=== PATIENT | male | born 1935 | race Caucasian/White ===

== ENCOUNTER 2017-02-24 15:18 | Inpatient (IN) | payer OTHER, BC ==
--- NOTE | 2017-02-24 15:33 | EDPHY ---
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 The patient is visiting from [place], he arrived 6 days ago. The patient state he has had an ongoing productive cough with yellow sputum for the past month. Since arriving here his cough became dry. He has associated shortness of breath and states "it feels like my lungs are going to collapse". His shortness of breath is worse with exertion. His pulse oximeter has ranged in the low 90s and upper 80s. He tried sleeping with 3/4 L of O2 which seemed to slightly help. He feels nauseous but states this has been ongoing. The patient has a Gunderson catheter in place, this morning he had some hematuria, no associated dysuria or urgency. He denies fever, chills, chest pain, palpitations, vomiting, diarrhea, headache, or lightheadedness. The patient receives Lupron every 12 weeks for prostate cancer. REVIEW OF SYSTEMS: Aside from elements discussed in the HPI, a comprehensive 10-point review of systems was reviewed and is negative. PAST MEDICAL HISTORY: Prostate cancer with metastases, Hypertension SOCIAL HISTORY: From [place], here to visit his daughter. VITAL SIGNS: Reviewed by me GENERAL: Well-developed, well-nourished, resting comfortably in no respiratory distress. HEENT: Atraumatic. Eyes: No icterus, no injection. Mouth: moist mucous membranes. No erythema or lesions. Neck: supple with no adenopathy. LUNGS: Absent breath sounds at the right base 1[address] Breath sounds are clear on the left. CARDIAC: Regular rate and rhythm, systolic murmur. ABDOMEN: Right upper quadrant tenderness and fullness. No guarding or rebound. BACK: No CVA tenderness. EXTREMITIES: No trauma. No edema. Range of motion is normal throughout. NEURO: Alert and oriented, grossly nonfocal. SKIN: Warm and dry, no rash. PSYCHIATRIC: Normal mentation, no agitation. Portions of this note were transcribed by a biomedical electronics technician. I personally performed a history, physical exam, medical decision making, and confirmed accuracy of information the transcribed note. ED Course: Patient presents with dyspnea that started once the patient arrived in NH. He is here from [place] visiting his daughter. His home pulse oximeter has ranged lower 90s to upper 80s. Patient is 92% on room air here. He has his blood work from mid January. Plan to repeat blood work and check chest x-ray. Chest x-ray shows large right pleural effusion. I discussed findings and reviewed the films with the patient and his daughter. They agree with plan for admission. 12-LEAD EKG: Please see the full report in [facility]. My interpretation: Nonspecific ST flattening anteriorly. 1640: I spoke to the hospitalist, Dr. Arboleda, who agrees to admit the patient. CT Angio chest ordered to further evaluate patient's pleural effusion as well as to evaluate for pulmonary embolism.. I discussed CT imaging results with the radiologist, CT is negative for PE. Pleural effusion is present on the CT scan. MDM: Differential diagnosis for the patient's shortness of breath was considered including but not limited to pulmonary infectious processes, metastatic disease , pneumothorax, pleural effusion, pulmonary emboli, pulmonary edema, congestive heart failure, and cardiac causes. - Data Points Imaging Results: Imaging Impressions Chest X-Ray 02/24/17 15:48 Impression: 1. Large right pleural effusion. 2. Consider CT chest imaging. Chest/Thorax CTA 02/24/17 16:37 Impression: 1. No evidence of thrombopulmonary embolic disease. 2. Large right pleural effusion. Atelectasis right middle lobe and right lower lobe. 3. Hypodense lesions throughout the liver suggesting metastatic disease as given by history. Subcentimeter pulmonary nodules which is nonspecific but could represent metastatic disease. Results called and discussed with Mary Darby MD at 02/24/2017 17:15. Imaging: Discussed imaging studies w/ duck operator Radiologist, I viewed and interpreted images myself Laboratory Results: Laboratory Results 02/24/17 16:07 02/24/17 16:07 02/24/17 02/24/17 02/24/17 16:07 16:07 16:07 WBC 7.77 10^3/uL 10^3/uL (3.80-9.50) RBC 3.82 10^6/uL L 10^6/uL (4.40-6.38) Hgb 11.1 g/dL L g/dL (13.7-17.5) Hct 33.6 % L % (40.0-51.0) MCV 88.0 fL fL (81.5-99.8) MCH 29.1 pg pg (27.9-34.1) MCHC 33.0 g/dL g/dL (32.4-36.7) RDW 13.4 % % (11.5-15.2) Plt Count 259 10^3/uL 10^3/uL (150-400) MPV 8.8 fL fL (8.7-11.7) Neut % (Auto) 74.2 % % (39.3-74.2) Lymph % (Auto) 13.9 % L % (15.0-45.0) [place] % (Auto) 9.8 % % (4.5-13.0) Eos % (Auto) 1.0 % % (0.6-7.6) Baso % (Auto) 0.5 % % (0.3-1.7) Nucleat RBC Rel Count 0.0 % % (0.0-0.2) Absolute Neuts (auto) 5.76 10^3/uL 10^3/uL (1.70-6.50) Absolute Lymphs (auto) 1.08 10^3/uL 10^3/uL (1.00-3.00) Absolute Monos (auto) 0.76 10^3/uL 10^3/uL (0.30-0.80) Absolute Eos (auto) 0.08 10^3/uL 10^3/uL (0.03-0.40) Absolute Basos (auto) 0.04 10^3/uL 10^3/uL (0.02-0.10) Absolute Nucleated RBC 0.00 10^3/uL 10^3/uL (0-0.01) Immature Gran % 0.6 % % (0.0-1.1) Immature Gran # 0.05 10^3/uL 10^3/uL (0.00-0.10) D-Dimer 3.04 ug/mLFEU H ug/mLFEU (0.00-0.50) Sodium 134 mEq/L mEq/L (134-144) Potassium 3.6 mEq/L mEq/L (3.5-5.2) Chloride 99 mEq/L mEq/L (97-110) Carbon Dioxide 27 mEq/l mEq/l (22-31) Anion Gap 8 mEq/L mEq/L (8-16) BUN 18 mg/dL mg/dL (7-23) Creatinine 0.8 mg/dL mg/dL (0.7-1.3) Estimated GFR > 60 Glucose 102 mg/dL H mg/dL (70-100) Calcium 8.8 mg/dL mg/dL (8.5-10.4) Total Bilirubin 0.6 mg/dL mg/dL (0.1-1.4) Conjugated Bilirubin 0.3 mg/dL mg/dL (0.0-0.5) Unconjugated Bilirubin 0.3 mg/dL mg/dL (0.0-1.1) AST 125 IU/L H IU/L (17-59) ALT 47 IU/L IU/L (21-72) Alkaline Phosphatase 107 IU/L IU/L (38-126) Troponin I < 0.012 ng/mL ng/mL (0-0.034) Total Protein 6.5 g/dL g/dL (6.3-8.2) Albumin 3.6 g/dL g/dL (3.5-5.0) General Time Seen by Provider: 02/24/17 15:32 Initial Vital Signs: Initial Vital Signs Temperature (C) 36.6 C 02/24/17 15:19 Heart Rate 77 02/24/17 15:19 Respiratory Rate 18 02/24/17 15:19 Blood Pressure 168/74 H 02/24/17 15:19 O2 Sat (%) 92 02/24/17 15:19 O2 Delivery Mode Nasal Cannula O2 (L/minute) 2 Allergies/Adverse Reactions: Sulfa (Sulfonamide Antibiotics) Allergy (Verified 04/07/15 13:01) Home Medications: Medication Instructions Recorded Herbal Supplements 1 ea PO AD 04/07/15 Micardis Hct 80-12.5 mg Tablet 1 tab PO DAILY 04/07/15 Nisoldipine [Sular] 8.5 mg PO HS 04/07/15 Tamsulosin HCl [Flomax 0.4 MG (RX)] 0.4 mg PO BID 04/07/15 Cholecalciferol Vit D3 [Vitamin D3 1,000 units PO DAILY 02/24/17 (*)] Leuprolide Acetate [Lupron Depot] 22.5 mg IM [id number] 02/24/17 Multivitamins [Multivitamin (*)] 1 each PO DAILY 02/24/17 Departure - Departure Disposition: [facility] Acute Clinical Impression: Pleural effusion, Shortness of breath, Prostate cancer Condition: Fair Report Scribed for: Mary Darby Report Scribed by: Kay Blunt Date of Report: 02/24/17 Time of Report: 15:41
[2017-02-24 16:18] LABS: % IMMATURE GRANULYOCYTES 0.6 % (0.0-1.1); ABSOLUTE IMMATURE GRANULOCYTES 0.05 10^3/uL (0.00-0.10); ADD DIFF? NO; ADD MORPH? NO; ADD SCAN? NO; ATYPICAL LYMPHOCYTE FLAG 0 (0-99); FRAGMENT RBC FLAG 0 (0-99); HEMATOCRIT 33.6 % (40.0-51.0); HEMOGLOBIN 11.1 g/dL (13.7-17.5); LEFT SHIFT FLG 0 (0-99); LIPEMIA HEMOLYSIS FLAG 80 (0-99); MEAN CELL HEMOGLOBIN 29.1 pg (27.9-34.1); MEAN PLATELET VOLUME 8.8 fL (8.7-11.7); PLATELET CLUMPS FLAG 0 (0-99); PLATELET COUNT 259 10^3/uL (150-400); RED BLOOD CELL COUNT 3.82 10^6/uL (4.40-6.38); RED CELL DISTRIBUTION WIDTH 13.4 % (11.5-15.2)
[2017-02-24 16:33] LABS: ALANINE AMINOTRANSFERASE 47 IU/L (21-72); ALBUMIN 3.6 g/dL (3.5-5.0); ALKALINE PHOSPHATASE 107 IU/L (38-126); ANION GAP 8 mEq/L (8-16); ASPARTATE AMINOTRANSFERASE 125 IU/L (17-59); BILIRUBIN,TOTAL 0.6 mg/dL (0.1-1.4); BILIRUBIN-CONJUGATED 0.3 mg/dL (0.0-0.5); BILIRUBIN-UNCONJUGATED 0.3 mg/dL (0.0-1.1); CALCIUM 8.8 mg/dL (8.5-10.4); CARBON DIOXIDE 27 mEq/l (22-31); CHLORIDE 99 mEq/L (97-110); CREATININE 0.8 mg/dL (0.7-1.3); GLOMERULAR FILTRATION RATE > 60; GLUCOSE 102 mg/dL (70-100); POTASSIUM 3.6 mEq/L (3.5-5.2); SODIUM 134 mEq/L (134-144); TOTAL PROTEIN 6.5 g/dL (6.3-8.2)
[2017-02-24] MEDS ORDERED: IOPAMIDOL (ISOVUE 370) 100 ML BTL IV ONE (16:40)
[2017-02-24 16:44] LABS: TROPONIN I < 0.012 ng/mL (0-0.034)
[2017-02-24 18:33] LABS: INR 1.11 (0.83-1.16); PROTIME(PATIENT) 14.2 SEC (12.0-15.0)
[2017-02-24 18:34] LABS: APTT 32.4 SEC (23.0-38.0)
[2017-02-24 18:35] LABS: LACTATE DEHYDROGENASE 1640 IU/L (313-618)
--- NOTE | 2017-02-24 19:03 | GHP ---
[f rep st] HISTORY AND PHYSICAL DATE OF ADMISSION: 02/24/2017 CHIEF COMPLAINT: Shortness of breath and chest discomfort. HISTORY OF PRESENT ILLNESS: This is an 82-year-old male with history of stage IV prostate cancer, o n Reinaldo, with metastases to liver and lungs. He is visiting [place] from [place]. He has had wor sening shortness of breath for the past month. He was seen by his primary care provider a month ago , where he was diagnosed with bronchitis. Over the past few days, his shortness of breath has worse tonie to the point where he thought he should come in to the emergency department for further evaluati on. He reports intermittent cough as well as a right-sided chest discomfort that feels l stefani his "chest is collapsing." He denies any fevers or chills. He denies any chest pain. Denies a ny weight loss. PAST MEDICAL HISTORY: 1. Stage IV prostate cancer with metastases to liver and lungs. 2. Hypertension. PAST SURGICAL HISTORY: Carpal tunnel release, hernia repair, cataract surgery, QUETA surgery. HOME MEDICATIONS: Reviewed. Refer to [facility] for details. ALLERGIES: Sulfa. SOCIAL HISTORY: He lives with his independently in [place]. He denies any alcohol, tobacco, or illicit drug use. FAMILY HISTORY: Significant for prostate cancer in his father who ultimately of cancer in his liver. REVIEW OF SYSTEMS: Comprehensive 10-point review of systems was done and is negative except for as mentioned in the HPI. PHYSICAL EXAMINATION: VITAL SIGNS: Blood pressure 147/71, pulse 66, respiratory rate 16, O2 sat 96 % on 2 L, temperature afebrile. GENERAL: No acute distress. HEAD: Normocephalic, atraumatic. EY ES: PERRLA. Sclerae anicteric. MOUTH: Moist mucous membranes. NECK: Supple. No lymphadenopath y. CARDIOVASCULAR: S1 and S2 with a systolic murmur, grade 4/6, which does not radiate to the charles tids. There is trace lower extremity edema. There is no JVD. PULMONARY: Lungs are clear on the l eft with absent breath sounds in the right base. There is dullness to percussion in the right base as well with some egophony. ABDOMEN: Soft, nontender, and nondistended. No guarding or rebound te nderness. Normoactive bowel sounds. EXTREMITIES: No clubbing or cyanosis. NEUROLOGIC: Cranial n erves 2 through 12 are grossly intact. No focal motor or sensory deficits. SKIN: Clear no rashes. DIAGNOSTICS: WBC is 7.7, hemoglobin 11.1, hematocrit 33.6, platelets 259. Sodium 134, potassium 3. 6, BUN 18, creatinine 0.8, glucose 102. AST 125, ALT 47. Troponin less than 0.012. Chest x-ray which I visualized and personally interpreted shows a large right lower lobe consolidati on. His D-dimer was elevated, and subsequently a CT angio of the chest was done that was negative for PE , but also demonstrated a large right pleural effusion with atelectasis of the right middle and righ t lower lobes. ASSESSMENT: This is an 82-year-old male visiting from [place] with known stage IV prostate cancer with metastases to his liver and lung presenting with chest discomfort in the setting of acute respi ratory failure due to a large right-sided pleural effusion. Differential diagnosis includes cardiac in etiology versus malignant pleural effusion versus other. PLAN: Patient will be placed in observation. I have ordered coags as well as ultrasound-guided tho racentesis for both diagnostic and therapeutic purposes. Fluid will be sent for cytology, as well a s the other standard laboratory studies to further evaluate the effusion. Also ordered an echocardi ogram to evaluate his murmur. /[id number]/MODL
[2017-02-24] MEDS ORDERED: NISOLDIPINE 8.5 MG PO SCH ×2 (21:00)
[2017-02-24] MEDS: TAMSULOSIN HCL 0.4 MG CAP PO SCH (21:08)
[2017-02-24] MEDS: NISOLDIPINE 8.5 MG PO SCH (21:08)
[2017-02-25 05:20] LABS: LACTATE DEHYDROGENASE 1468 IU/L (313-618)
--- NOTE | 2017-02-25 06:08 | CPEKG ---
Heart Rate: 72 RR Interval: 833 P-R Interval: 200 QRSD Interval: 78 QT Interval: 388 QTC Interval: 425 P Sabin: 64 QRS Sabin: 10 T Wave Sabin: 67 EKG Severity - ABNORMAL ECG - EKG Impression: SINUS RHYTHM EKG Impression: LEFT VENTRICULAR HYPERTROPHY Electronically Signed By: Jayjay Bucio 26-Feb-2017 15:49:46
[2017-02-25] MEDS ORDERED: TELMISARTAN 40 MG TAB PO SCH (08:00)
[2017-02-25] MEDS ORDERED: HYDROCHLOROTHIAZIDE 25 MG TAB PO SCH (08:00)
[2017-02-25] MEDS ORDERED: LIDOCAINE 1% 300 MG/30 ML SDV ONE (08:15)
[2017-02-25] MEDS: MULTIVITAMINS 1 EACH TAB PO SCH (08:21)
[2017-02-25] MEDS: MICARDIS HCT PO SCH ×2 (08:21→11:18)
[2017-02-25] MEDS: TAMSULOSIN HCL 0.4 MG CAP PO SCH ×2 (08:21→22:44)
[2017-02-25] MEDS ORDERED: MICARDIS HCT PO SCH (09:00)
[2017-02-25 09:40] LABS: HEMATOCRIT 33.8 % (40.0-51.0); HEMOGLOBIN 11.5 g/dL (13.7-17.5); MEAN CELL HEMOGLOBIN 29.9 pg (27.9-34.1); RED BLOOD CELL COUNT 3.84 10^6/uL (4.40-6.38); RED CELL DISTRIBUTION WIDTH 13.4 % (11.5-15.2)
[2017-02-25 09:45] LABS: ALANINE AMINOTRANSFERASE 38 IU/L (21-72); ALBUMIN 3.1 g/dL (3.5-5.0); ALKALINE PHOSPHATASE 96 IU/L (38-126); ANION GAP 9 mEq/L (8-16); ASPARTATE AMINOTRANSFERASE 109 IU/L (17-59); BILIRUBIN,TOTAL 0.8 mg/dL (0.1-1.4); CALCIUM 9.1 mg/dL (8.5-10.4); CARBON DIOXIDE 26 mEq/l (22-31); CHLORIDE 101 mEq/L (97-110); CREATININE 0.8 mg/dL (0.7-1.3); GLOMERULAR FILTRATION RATE > 60; GLUCOSE 94 mg/dL (70-100); SODIUM 136 mEq/L (134-144); TOTAL PROTEIN 5.9 g/dL (6.3-8.2)
[2017-02-25] MEDS ORDERED: NS 1,000 ML IV SCH (10:15)
[2017-02-25 10:28] LABS: LD, PLEURAL FLUID 1592 IU/L
[2017-02-25] MEDS: CHOLECALCIFEROL VIT D3 1,000 UNITS TAB PO SCH (11:18)
--- NOTE | 2017-02-25 12:02 | ECHO ---
[id number] + + [address] : : [place] [address] : : [phone] + + Adult Echocardiographic Report + ------+ :Name: GABRIELLE WHITLEY Nurisudy Date: 02/25/2017 07:43 AM : : Hospital Admission Number: [id number] Locatio n: 374: :: 1935 Gender: Male Height: 65 in : :Age: 82 yrs Race: WH Weight: 150 lb : :Reason For Study: Murmur with large pleural effusion : : BSA: 1.8 meters 2 : :History: Lung and liver CA : + ------+ MMode/2D Measurements \T\ Calculations IVSd: 0.84 cm LVIDd: 4.5 cm FS: 42.7 % Ao root diam: LVPWd: 0.83 cm LVIDs: 2.5 cm EDV(Teich): 3.4 cm 90.1 ml LA dimension: ESV(Teich): 3.5 cm 23.4 ml EF(Teich): 74.0 % LVLd ap4: 7.1 cm SV(MOD-sp4): EDV(MOD-sp4): 55.0 ml 85.0 ml LVLs ap4: 5.8 cm ESV(MOD-sp4): 30.0 ml EF(MOD-sp4): 64.7 % Normal Measurement Values: + + :LVIDd (3.5-5.7cm) IVSd (0.6-1.1cm) LVPWd (0.6-1.1cm) Aortic Root (2.0-3.7cm)Left Atrium (1.5-4.0cm): :LV Vol(d) (76-115ml) LV Vol(s) (29-48ml) Ejec Fraction (50-65%)PV Rian (0.6- 1.2m/s) TV Rian (0.4-1.0m/s) : :MV E Rian (0.8-1.0m/s)MV A Rian (0.3-1.0m/s)LVOT Rian (0.7-1.2m/s) Asc Ao Rian ( 0.9-1.8m/s) : + + Doppler Measurements \T\ Calculations MV E max rian: 69.1 cm/sec Ao mean P.3 mmHg TR max rian: 271.5 cm/sec MV A max rian: 85.9 cm/sec Ao V2 mean: 107.5 cm/sec TR max P.5 mmHg MV E/A: 0.80 Ao V2 VTI: 30.3 cm RAP systole: 5.0 mmHg RVSP(TR): 34.5 mmHg Left Ventricle The left ventricle is normal in size. There is mild concentric left ventricular hypertrophy. Left ventricular systolic function is normal. Ejection Fraction = 65-70%. The left ventricular ejection fraction is calculated at 74.0 %. There is Doppler evidence for diastolic dysfunction. No regional wall motion abnormalities noted. Right Ventricle The right ventricle is normal in size and function. Atria The left atrium is mildly dilated. The right atrium is mildly dilated. Mitral Valve The mitral valve is normal in structure and function. There is mild mitral regurgitation. Tricuspid Valve Normal tricuspid valve. There is moderate tricuspid regurgitation. Right ventricular systolic pressure is normal. Aortic Valve The aortic valve is trileaflet. The aortic valve opens well. MIld aortic calcification. There is no aortic stenosis. There is no aortic insufficiency. Pulmonic Valve The pulmonic valve is normal in structure and function. Trace pulmonic valvular regurgitation. Great Vessels The aortic root is normal size. Pericardium/Pleural There is no pericardial effusion. Left pleural effusion. Conclusion A complete two-dimensional transthoracic echocardiogram was performed (2D, M-mode, Doppler and color flow Doppler). Of note, LA and RA size are tough to determine size with the large amount of left pleural fluid. (1) Left ventricular systolic ejection fraction was normal (>65%) - normal wall motion (2) Mild concentric left ventricular hypertrophy (3) Diastolic dysfunction was present (4) Normal right ventricular size and function (5) Mild biatrial dilation (6) Mild mitral regurgitation (7) Trileaflet aortic valve with mild sclerosis, no stenosis, and no appreciable insufficiency (8) Moderate tricuspid regurgitation - RVSP was within normal limits (9) Grossly normal pulmonic valve with physiologic insufficiency (10) No comparison echocardiograms Final Reading Physician: Wojciech Garcia signed on 02/25/2017 12:01 PM Ordering Physician: Freedom Arboleda Performed By: Viky Kimball, [facility]
[2017-02-25] MEDS ORDERED: POLYETHYLENE GLYCOL 3350 17 GM PKT PO PRN (16:52)
[2017-02-25] MEDS ORDERED: LACTULOSE 20 GM/30 ML UDCUP PO PRN (16:52)
[2017-02-25] MEDS ORDERED: MAGNESIUM HYDROXIDE 30 ML UDCUP PO PRN (16:52)
[2017-02-25] MEDS ORDERED: BISACODYL 10 MG SUPP PR PRN (16:52)
[2017-02-25] MEDS ORDERED: ENOXAPARIN 30 MG/0.3 ML SYR SC SCH (17:00)
--- NOTE | 2017-02-25 19:42 | HOSPPROG ---
Hospitalist Progress Note Assessment/Plan: 1. R pleural effusion -s/p large volume thoracentesis today, repeat CXR without complications -discussed monitoring for reaccumulation with xray in AM -may need surgery consult if significant reaccumulation -studies pending on fluid, no indication of infection, bloody 2. known metastatic prostate cancer (dx 07/2016, care at [facility], Stage 4) -discussed care with primary heme/onc in [place], , fax . She is leaving office for vacation, so OK to contact Linda (her ENVIRONMENTAL CONSTRUCTION ENGINEER) for further info/consult if needed. -consider heme/onc consult here if significant reaccumulation/needs evaluation here but their preference is to fly home/do FU care at home if able -is on luporon, but was changing oncologists at home to consider other options too 3. Anemia -similar to previous levels (they have copies of most recent labs) 4. Elev AST -known chronic elevation per prev labs, this is slightly higher 5. hypoxia -from effusion, +- altitude exposure -may need O2 at discharge 6. DVT prophy -high risk but holding meds bc of bleeding risk -teds/scds FULL CODE, PCP in [place] DISPO-likely > 2 mdnts due to complexity of medical problems/hypoxia, and pending further eval - Subjective: felt poorly after procedure, but better now. in room, daughter on phone during rounds. Changing oncologists at home in [place], has been in email contact, asked to share my cell # so I could speak with her. Denies CP/abd pain/n/v/d. SOB minimal currently. Denies pain. Objective: Vital Signs Temp Pulse Resp BP Pulse Ox 98.0 F 67 16 141/75 H 97 02/25/17 19:12 02/25/17 19:12 02/25/17 19:12 02/25/17 19:12 02/25/17 19:12 02/24/17 02/25/17 02/26/17 11:59 11:59 11:59 Intake Total 1000 Output Total 250 Balance 750 PT 14.2 SEC (12.0-15.0) 02/24/17 16:15 INR 1.11 (0.83-1.16) 02/24/17 16:15 - Time Spent With Patient Time Spent with Patient: greater than 35 minutes Time Spent with Patient: Greater than 35 minutes spent on this patients care, greater than 50% of time spent counseling, educating, and coordinating care regarding the above mentioned plan. - Physical Exam Constitutional: no apparent distress, appears nourished, not in pain, other ( thin) Eyes: PERRL, anicteric sclera, EOMI Ears, Nose, Mouth, Throat: moist mucous membranes, hearing normal Cardiovascular: regular rate and rhythym Respiratory: no respiratory distress, other (decreased air movement R LL) Gastrointestinal: normoactive bowel sounds, soft, non-tender abdomen, no palpable masses, No guarding, No rebound Skin: warm Musculoskeletal: other (MALDONADO) Psychiatric: interacting appropriately, not anxious, not encephalopathic, thought process linear ICD10 Worksheet Patient Problems: Problems Problem Status Onset Hypoxemia Acute Pleural effusion Acute Shortness of breath Acute Metastatic cancer Chronic Prostate cancer Chronic
[2017-02-25] MEDS: SENNOSIDES/DOCUSATE SODIUM TAB PO SCH (22:44)
[2017-02-25] MEDS: NISOLDIPINE 8.5 MG PO SCH (22:46)
[2017-02-26] MEDS: MELATONIN 3 MG TAB PO SCH ×2 (01:44→20:13)
[2017-02-26 07:14] LABS: HEMATOCRIT 34.5 % (40.0-51.0); HEMOGLOBIN 11.3 g/dL (13.7-17.5); MEAN CELL HEMOGLOBIN 29.2 pg (27.9-34.1); MEAN CELL HEMOGLOBIN CONCENTR. 32.8 g/dL (32.4-36.7); MEAN CELL VOLUME 89.1 fL (81.5-99.8); RED BLOOD CELL COUNT 3.87 10^6/uL (4.40-6.38); RED CELL DISTRIBUTION WIDTH 13.3 % (11.5-15.2)
[2017-02-26 07:28] LABS: ALANINE AMINOTRANSFERASE 45 IU/L (21-72); ALBUMIN 2.9 g/dL (3.5-5.0); ALKALINE PHOSPHATASE 95 IU/L (38-126); ANION GAP 7 mEq/L (8-16); ASPARTATE AMINOTRANSFERASE 132 IU/L (17-59); BILIRUBIN,TOTAL 0.7 mg/dL (0.1-1.4); CALCIUM 8.6 mg/dL (8.5-10.4); CARBON DIOXIDE 28 mEq/l (22-31); CHLORIDE 101 mEq/L (97-110); CREATININE 0.8 mg/dL (0.7-1.3); GLOMERULAR FILTRATION RATE > 60; GLUCOSE 101 mg/dL (70-100); POTASSIUM 3.6 mEq/L (3.5-5.2); SODIUM 136 mEq/L (134-144); TOTAL PROTEIN 5.5 g/dL (6.3-8.2)
[2017-02-26] MEDS: TAMSULOSIN HCL 0.4 MG CAP PO SCH ×2 (08:58→20:13)
[2017-02-26] MEDS: MULTIVITAMINS 1 EACH TAB PO SCH (08:59)
[2017-02-26] MEDS: CHOLECALCIFEROL VIT D3 1,000 UNITS TAB PO SCH (08:59)
[2017-02-26] MEDS: SENNOSIDES/DOCUSATE SODIUM TAB PO SCH ×2 (08:59→20:13)
[2017-02-26] MEDS: MICARDIS HCT PO SCH (10:30)
--- NOTE | 2017-02-26 10:40 | HOSPPROG ---
Hospitalist Progress Note Assessment/Plan: * large right exudative pleural effusion * Most likely due to metastatic prostate cancer * Cytology is pending * Fairly rapid reaccumulation * Discussed with Oncology - will get PleurX catheter * They will see patient * Monitor overnight if we can get this today * known metastatic prostate cancer * anemia * Elevated liver function tests -due to mets Subjective: Feels okay. No shortness of breath. Objective: Vital Signs Temp Pulse Resp BP Pulse Ox 36.4 C 69 18 128/59 H 92 02/26/17 08:00 02/26/17 08:00 02/26/17 08:00 02/26/17 08:00 02/26/17 08:00 Laboratory Results 02/26/17 07:06 02/26/17 07:06 02/25/17 02/26/17 02/27/17 05:59 05:59 05:59 Intake Total 1900 Output Total 800 Balance 1100 PT 14.2 SEC (12.0-15.0) 02/24/17 16:15 INR 1.11 (0.83-1.16) 02/24/17 16:15 Discussed with Oncology Chest x-ray personally viewed interpreted fairly rapid reaccumulation - Physical Exam Constitutional: no apparent distress, appears nourished, not in pain Eyes: anicteric sclera, EOMI Ears, Nose, Mouth, Throat: moist mucous membranes, hearing normal Cardiovascular: regular rate and rhythym, no murmur, rub, or gallop Respiratory: no respiratory distress, reduced air movement (Decreased right base ) Gastrointestinal: normoactive bowel sounds, soft, non-tender abdomen, no palpable masses Skin: warm Neurologic: AAOx3 Psychiatric: interacting appropriately, not anxious, not encephalopathic, thought process linear ICD10 Worksheet Patient Problems: Problems Problem Status Onset Hypoxemia Acute Pleural effusion Acute Shortness of breath Acute Metastatic cancer Chronic Prostate cancer Chronic
--- NOTE | 2017-02-26 12:23 | GCON ---
[f rep st] CONSULTATION DATE OF CONSULTATION: 02/26/2017 REFERRING PHYSICIAN: Samuel Dumont MD INPATIENT ONCOLOGY CONSULTATION REASON FOR CONSULTATION: Prostate cancer with likely malignant pleural effusion. HISTORY OF PRESENT ILLNESS: Mr. Perales is an 82-year-old man with a history of prostate cancer. He lives in [place], [place] and is here this week visiting his daughter and grandchildren. He was diagnosed in July 2016 when he presented with urinary retention. A CT scan showed metastases to the liver and lungs. His PSA was only mildly elevated for advanced disease at 19 but a biopsy of the liver confirmed the presence of metastatic prostate cancer. A Gunderson catheter was placed which remains. He was started on therapy with Lupron alone and apparently had a good response for his PSA. He had a cough for the past several weeks but otherwise is feeling well. He flew to [place] to visit family. Upon arrival he began to feel more short of breath. He was seen in the emergency department where a large right-sided pleural effusion was noted. CT angiogram did not reveal evidence of pulmonary emboli but did show subcentimeter pulmonary nodules, as well as multiple lesions in the liver. He had a thoracentesis which yielded almost 3 L of fluid. The fluid had an elevated LDH of 1592 and was bloody. He is feeling much better after the thoracentesis but the chest x-ray this morning shows that the fluid is reaccumulating. Cytology is pending. PAST MEDICAL HISTORY: Hypertension. CURRENT MEDICATIONS: Include Flomax. FAMILY HISTORY: Father also of prostate cancer. SOCIAL HISTORY: He is a nonsmoker, nondrinker. He lives with his in [place]. He is a professional wood worker. REVIEW OF SYSTEMS: Aside from pertinent positives noted in the HPI, a 14-point review of system was negative. EXAMINATION: VITAL SIGNS: Temperature is 36.8, blood pressure 125/63, heart rate 66, oxygen sat 96% on 1 L. GENERAL: He was an elderly man in no acute distress, breathing comfortably. HEENT: Sclerae were anicteric. Oropharynx is clear. NECK: Supple without lymphadenopathy. LUNGS: With absent breath sounds mcc up on the right side, otherwise clear. CARDIAC: Regular rate and rhythm. No murmurs, gallops, rubs. ABDOMEN: Normoactive bowel sounds. Nontender. Nondistended. EXTREMITIES: Without edema. NEUROLOGIC: Alert and oriented x3. SKIN: No petechiae, purpura. LABORATORY DATA: White count 8.02, hemoglobin 11.3, platelets of 256. PSA 6.74. Sodium 136, potassium 3.6, chloride 101, bicarb 28, BUN 14, creatinine 0.8. Total bilirubin 0.7, AST 132, ALT 45, alkaline phosphatase 95. LDH elevated at 1468. 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 His pleural effusion is almost certainly malignant based on his history and lack of other exposures for infection such as tuberculosis. I think the optimal way to manage this would be to place a PleurX catheter. Talc pleurodesis is often attempted but is unsuccessful the majority of times particularly with a rapidly reaccumulating effusion. The patient's priority is to leave the hospital as soon as possible so he can have as much time as possible to visit with his grandchildren and then return home. From that perspective too, I think a PleurX catheter would be optimal. I have already discussed with Dr. Dumont, who has made arrangements for placement of the tube later today. We also briefly discussed potential treatment options. His oncologist has already ordered abiraterone which I think would be a reasonable choice. It is a bit unusual that the PSA is fairly low given the extent of disease, the LDH may be elevated due to rapid cell perforation. We also discussed the possibility of Taxotere which is often effective for metastatic prostate cancer. Finally, if the biopsy showed a small cell differentiation of prostate cancer, then treated with a kanatak combination can also be considered. The patient is planning to return to [place] on Thursday. I have recommended that he have oxygen on the plane. He understands that he can contact us at any time after discharge if he needs anything prior to his departure. Thank you this consultation. It was a pleasure meeting Mr. Perales. I appreciate the opportunity to help in his care. Please feel free to contact me with any additional questions or concerns. /[id number]/MODL MTDD
[2017-02-26] MEDS ORDERED: ONDANSETRON 4 MG/2 ML VIAL IVP PRN (16:06)
[2017-02-26] MEDS: NISOLDIPINE 8.5 MG PO SCH (20:12)
[2017-02-26] MEDS ORDERED: NISOLDIPINE 8.5 MG PO SCH (21:00)
[2017-02-27 05:38] LABS: INR 1.19 (0.83-1.16); PROTIME(PATIENT) 15.1 SEC (12.0-15.0)
[2017-02-27] MEDS: MULTIVITAMINS 1 EACH TAB PO SCH (08:02)
[2017-02-27] MEDS: CHOLECALCIFEROL VIT D3 1,000 UNITS TAB PO SCH (08:02)
[2017-02-27] MEDS: TAMSULOSIN HCL 0.4 MG CAP PO SCH (08:02)
[2017-02-27] MEDS: SENNOSIDES/DOCUSATE SODIUM TAB PO SCH (08:02)
[2017-02-27] MEDS: MICARDIS HCT PO SCH (08:03)
--- NOTE | 2017-02-27 10:51 | PDHOMEO2F ---
Home Oxygen Face to Face Home Orders: I certify that a physician or a nurse practitioner or physician's assistant director of nursing has had a [id number] encounter with this patient on the date of this order due to the diagnosis listed, which relates to the primary reason the patient requires home oxygen. Alternative treatments have been tried, or considered, and deemed ineffective. It is anticipated that supplemental oxygen will result in improvement with treatment. Home oxygen qualifying diagnosis: lung cancer SpO2 on room air (%): 83 Frequency of home oxygen needed: continuous Home oxygen liters per minute: 2L Home oxygen delivery device: Nasal cannula E-tanks for mobility and back up: Yes If ordering portable O2, is the patient mobile in the home?: Yes I certify that, based on these findings, the home oxygen is medically necessary for this patient for the following length of time. Length of time home oxygen needed: 1 week
[2017-02-27] MEDS ORDERED: fentaNYL 100 MCG/2 ML INJ ONE ×2 (12:42→12:54)
[2017-02-27] MEDS ORDERED: MIDAZOLAM 2 MG/2 ML VIAL ONE ×2 (12:43→12:54)
[2017-02-27] MEDS ORDERED: LIDOCAINE 1% 300 MG/30 ML SDV ONE (13:24)
[2017-02-27 14:29] VITALS: BP 118/57; PULSE 65; RESP 20; TEMP 98.4; O2SAT 98
--- NOTE | 2017-02-27 22:22 | GDS ---
[f rep st] DISCHARGE SUMMARY DISCHARGE DIAGNOSES: 1. Right-sided malignant effusion. 2. Metastatic prostate cancer. 3. Hypertension. HISTORY: This is an 82-year-old male, visiting from [place], with metastatic prostate cancer known to liver, who presents with increasing shortness of breath. HOSPITAL COURSE: Patient had a CT scan which did not show pulmonary embolism but did show some nodu lar abnormalities in the left lung. He did have a large right pleural effusion. This was tapped an d appears to be malignant. There are no infectious symptoms or abnormalities, and CT scan suggests parapneumonic effusion. On the following day, a repeat chest x-ray showed that the effusion had alan ccumulated fairly quickly. This was discussed with Oncology who thought that a PleurX catheter woul d be the best choice. This was placed today. He tolerated this well, and he will be discharged caron . He will be going home to [place] on Thursday. We are arranging home oxygen and oxygen on the [facility] [place] for him to go back. He will follow up closely with his oncologist at [facility]. TIME SPENT: Greater than 30 minutes was spent on discharge. /[id number]/MODL
== END 2017-02-27 16:07 | disposition home or self-care (01) | DRG 181 ==
LOC: F3E 18:18 → OBSVTOIN 02-25 15:27
PROVIDERS: ADMIT Family Medicine; ATTEND Family Medicine
PROC: 0W993ZZ Drainage of Right Pleural Cavity, Percutaneous Approach (ICD-10-PCS; 2017-02-25)
PROC: 0W9930Z Drainage of Right Pleural Cavity with Drainage Device, Percutaneous Approach (ICD-10-PCS; principal; 2017-02-27 13:15)
DX: C78.00 Secondary malignant neoplasm of unspecified lung (principal); J91.0 Malignant pleural effusion; C78.7 Secondary malignant neoplasm of liver and intrahepatic bile duct; C61 Malignant neoplasm of prostate; I10 Essential (primary) hypertension
CPT/HCPCS: C2617; G0378; J2250; J2405; J3010; Q9967